=== PATIENT | male | born 1995 | race Caucasian/White ===

== ENCOUNTER 2019-01-14 13:43 | Emergency (ER) | payer OTHER, BC ==
--- NOTE | 2019-01-14 14:30 | EDM.PDOC ---
ED HPI GENERAL MEDICAL PROBLEM - General Chief Complaint: Head Injury Stated Complaint: HEAD INJURY Time Seen by Provider: 01/14/19 13:51 Source of Information: Reports: Patient History Limitations: Reports: No Limitations - History of Present Illness INITIAL COMMENTS - FREE TEXT/NARRATIVE: The patient presents with a head injury. He was at work and he was on his knees by a pipe and he stood up fast and hit the back of his head on a pipe. He had no LOC. He had a headache right away but he did not feel that bad. He went to eat his lunch and got more of a headache, dizziness, nausea and vomiting. He has generalized weakness but no weakness on one side or the other. He blurred vision or double vision. He has no chest pain, shortness of breath, or abdominal pain. He is not on any blood thinners. He does have some neck pain. Onset: Sudden Duration: Hour(s): Location: Reports: Head, Neck Quality: Reports: Sharp Severity: Moderate Improves with: Reports: None Worsens with: Reports: None Associated Symptoms: Reports: Headaches, Nausea/Vomiting. Denies: Chest Pain, Cough, Fever/Chills, Shortness of Breath posterior head Pain Score (Numeric/FACES): 4 - Related Data Allergies Allergy/AdvReac Type Severity Reaction Status Date / Time amoxicillin Allergy Rash Verified 01/14/19 13:53 Penicillins Allergy Rash Verified 01/14/19 13:53 Sulfa (Sulfonamide Allergy Rash Verified 01/14/19 13:53 Antibiotics) Home Meds: Home Meds . [No Known Home Meds] 01/14/19 [History] Past Medical History - Past Health History Medical/Surgical History: Denies Medical/Surgical History Social & Family History - Family History Family Medical History: Noncontributory - Tobacco Use Smoking Status *Q: Former Smoker Used Tobacco, but Quit: No - Caffeine Use Caffeine Use: Reports: Soda - Recreational Drug Use Recreational Drug Use: No ED ROS GENERAL - Review of Systems Review Of Systems: See Below Constitutional: Reports: No Symptoms HEENT: Reports: No Symptoms Respiratory: Reports: No Symptoms Cardiovascular: Reports: No Symptoms Endocrine: Reports: No Symptoms GI/Abdominal: Reports: Nausea, Vomiting. Denies: Abdominal Pain : Reports: No Symptoms Musculoskeletal: Reports: Neck Pain. Denies: Back Pain Neurological: Reports: Dizziness, Headache ED EXAM, HEAD INJURY - Physical Exam Exam: See Below Exam Limited By: No Limitations General Appearance: Alert, No Apparent Distress Head: Other (Edema and tenderness to the occipital region) Eyes: Bilateral Eye: EOMI, PERRL Ears: Normal External Exam Nose: Normal Inspection Neck: Tenderness (Moderate tednerness to the upper to left lateral neck) Respiratory: No Respiratory Distress, Lungs Clear, Normal Breath Sounds Cardiovascular: Regular Rate, Rhythm, No Edema, No Murmur GI/Abdominal Exam: Soft, Non-Tender, No Organomegaly, No Mass Back Exam: Normal Inspection Extremities: Normal Inspection Neurologic: No Motor/Sensory Deficits, Alert, Oriented x 3 Course - Vital Signs Last Recorded V/S: Last Vital Signs Temp 98.2 F 01/14/19 13:46 Pulse 85 01/14/19 13:46 Resp 18 01/14/19 13:46 BP 146/74 H 01/14/19 13:46 Pulse Ox 98 01/14/19 13:46 - Re-Assessments/Exams Free Text/Narrative Re-Assessment/Exam: 01/14/19 14:[address] of his head and cervical spine. 01/14/19 15:[address] of his cervical spine shows bilateral cervical ribs and nothing acute is seen on CT study of the cervical Spine. The CT of his head shows nothing acute but he does have a 1cm right maxillary retention cyst. I feel he has a concussion. I will discharge him home. Departure - Departure Time of Disposition: 15:30 Disposition: Home, Self-Care 01 Condition: Good Clinical Impression: Concussion injury of brain Contusion of scalp Qualifiers: Encounter type: initial encounter Qualified Code(s): S00.03XA - Contusion of scalp, initial encounter - Discharge Information *PRESCRIPTION DRUG MONITORING PROGRAM REVIEWED*: Not Applicable *COPY OF PRESCRIPTION DRUG MONITORING REPORT IN PATIENT TAISHA: Not Applicable Referrals: PCP,None [Primary Care Provider] - Aziza Cason PA-C [Physician Painting Technician] - 1 Week Forms: ED Department Discharge, ED Return to Work/School Form Additional Instructions: Take tylenol or motrin for pain. Get some rest tonight. Please return if you are worse.
--- NOTE | 2019-01-14 14:47 | CT ---
Head CT Technique: Multiple axial sections through the brain were obtained. Intravenous contrast was not utilized. Comparison: No previous intracranial imaging. Findings: Ventricles along with basal cisterns and sulci over the convexities are within normal limits for the patient's age. No abnormal parenchymal densities are seen. No evidence of intracranial hemorrhage. No midline shift or mass effect is seen. Small rounded soft tissue abnormality is seen within the right maxillary sinus most likely due to retention cyst measuring 1 cm. Other visualized sinuses are clear. No acute calvarial abnormality is appreciated. Impression: 1. Incidental sinus findings. 2. Nothing acute is seen on noncontrast head CT exam. Diagnostic code #2
--- NOTE | 2019-01-14 14:58 | CT ---
CT cervical spine Technique: Multiple axial sections were obtained from above C1 inferiorly to the bottom of T1. Reconstructed sagittal and coronal images were reviewed. Comparison: No prior cervical spine imaging. Findings: Vertebral body heights and disc spaces are maintained. Vertebral bodies and posterior arches are intact. No fracture is seen. Incidental bilateral cervical ribs are seen. No bony central or neural foraminal stenosis is seen. Mild scoliosis is seen. No abnormal subluxation is seen. Impression: 1. Bilateral cervical ribs. 2. Nothing acute is seen on CT study of the cervical spine. Diagnostic code #2
== END 2019-01-14 15:35 | disposition home or self-care (01) ==
LOC: JD.ED 13:43
DX: S06.0X0A Concussion without loss of consciousness, initial encounter (principal); S00.03XA Contusion of scalp, initial encounter; Z87.891 Personal history of nicotine dependence; Z88.0 Allergy status to penicillin; Z88.1 Allergy status to other antibiotic agents; W22.8XXA Striking against or struck by other objects, initial encounter; Y99.0 Civilian activity done for income or pay
CPT/HCPCS: 70450; 70450-26; 72125; 72125-26; 99282; 99283-25